=== PATIENT | female | born 1955 | race Caucasian/White ===

== ENCOUNTER 2022-12-23 15:54 | Emergency (ER) | payer MEDICARE, SELFPAY ==
--- NOTE | 2022-12-23 15:56 | ED.EYEPROB ---
HPI - Eye Problem General Chief complaint: Eye Problems Stated complaint: Lt Eye Irritation Time Seen by Provider: 12/23/22 15:56 Source: patient Mode of arrival: ambulatory Limitations: no limitations History of Present Illness HPI Narrative: Ivy is a 67-year-old female patient presenting to the clinic today with complaints of left eye irritation since last night. She reports she had a gritty sensation in her eye last night and woke up this morning with her eyes matted shut with yellow purulent drainage. Is also having some watery eyes/photosensitivity. States she has recently been exposed her grandkids however none of them have conjunctivitis. She denies any injury or foreign body in the eye. Recently had cataract surgery to the left eye 8 weeks ago. Denies any change in vision. Related Data Home Medications Medication Instructions Recorded Confirmed atorvastatin 20 mg tablet 20 mg PO DAILY 12/23/22 12/23/22 fluoxetine 40 mg capsule 40 mg PO DAILY 12/23/22 12/23/22 fluticasone propionate 115 2 puff inhalation BID 12/23/22 12/23/22 mcg-salmeterol 21 mcg/actuation HFA inhaler (Advair HFA) insulin glargine 100 unit/mL (3 See Rx Instructions .Route .COMPLEX 12/23/22 12/23/22 mL) subcutaneous pen (Lantus Solostar U-100 Insulin) insulin lispro 100 unit/mL See Rx Instructions .Route .COMPLEX 12/23/22 12/23/22 subcutaneous pen (Humalog KwikPen (U-100) Insulin) losartan 25 mg tablet 25 mg PO DAILY 12/23/22 12/23/22 metformin 1,000 mg tablet 1,000 mg PO DAILY 12/23/22 12/23/22 montelukast 10 mg tablet 10 mg PO HS 12/23/22 12/23/22 pantoprazole 40 mg tablet,delayed 40 mg PO DAILY 12/23/22 12/23/22 release trazodone 50 mg tablet 50 mg PO HS 12/23/22 12/23/22 Allergies Allergy/AdvReac Type Severity Reaction Status Date / Time No Known Allergies Allergy Verified 12/23/22 16:04 Review of Systems Review of Systems: Pertinent positives per HPI. Patient denies any fever, chills, rash, headache, visual changes, dizziness, cough, runny nose, sore throat, shortness of breath, chest pain, palpitations, nausea, vomiting, diarrhea, constipation, abdominal pain, or any urinary issues. PMFSH Comments At the time of my signature, I reviewed and agree with the nursing past medical, surgical, social, and family history. There is no relevant family history pertinent to the patient complaint. Exam Narrative: General: Well-developed, well nourished, in no apparent distress Head: Normocephalic, atraumatic Eyes: Pupils equally round and reactive to light bilaterally, EOM intact, right sclera and conjunctive clear, no discharge, right lids normal, left sclera and conjunctiva injected with yellow mucopurulent discharge, left lids mildly swelling Ears: TMs intact and clear, ear canals clear, no drainage, grossly hearing normal. Nose: Nares patent, no discharge, no inflammation, no sinus tenderness. Mouth: Oropharynx without lesions or masses, good dentition, MMM. Neck: Supple, trachea midline, no enlargement of anterior or posterior cervical nodes, no thyroid masses or goiter palpable. Cardio: Regular rate and rhythm, s1 and s2 normal, no murmur appreciated. Resp: Clear to auscultation bilaterally anteriorly and posteriorly, no rhonchi, rales, wheezing or rubs Course Course Emergency Course: Portions of this record may have been created with voice recognition software. Level of Care: Express Care Visit Vital Signs Vital signs: Vital signs reviewed Procedures Other Procedure Procedure 1: Other Procedure: Risk and benefits discussed with the patient regarding a Wood's lamp exam and patient gives verbal consent. Topical anesthetic (tetracaine) was instilled with good anesthesia using 2gtt. Fluorescein stain of the left eye was performed without uptake of dye. No epithelial defect was noted. NO FB, ulcer or dendritic lesions. Yellow mucopurulent discharge noted to the conjunctiva, upper lid was
[2022-12-23 16:06] VITALS: BP 146/71; PULSE 93; RESP 16; TEMP 36.4; O2SAT 96
== END 2022-12-23 16:22 | disposition home or self-care (01) ==
PROVIDERS: Emergency Provider Nurse Practitioner Family; PCP Family Medicine
DX: H10.9 Unspecified conjunctivitis (principal); E78.00 Pure hypercholesterolemia, unspecified; I10 Essential (primary) hypertension; K21.9 Gastro-esophageal reflux disease without esophagitis; M19.90 Unspecified osteoarthritis, unspecified site; E11.9 Type 2 diabetes mellitus without complications; F41.9 Anxiety disorder, unspecified; F32.A Depression, unspecified
CPT/HCPCS: 90471; 99203; A9270; G0463

== ENCOUNTER 2024-11-08 13:26 | Emergency (ER) | payer MEDICARE, SELFPAY ==
--- OUTSIDE RECORDS SUMMARY | 2024-11-08 13:29 | XMS_ITS | Patient Health Record ---
Author Organization [facility]ly [facility] Address [address] [place] [address] Care Team Providers Care Boat Captain Name Role Phone Dr. Shell Munoz Primary Care Provider [phone] Elena Peters Unavailable [phone] Dr. Narciso Villareal Unavailable [phone] Migration, Provider Unavailable Unavailable Allergies Allergen (clinical drug ingredient) Drug/Non Drug Allergy documented on EMR Reaction Allergy Type Onset Date Status pioglitazone Pioglitazone swelling leg Drug Allergy 12/17/19 21 Active Results Component Value Reference Range Flag Notes CBC w/ Diff Reviewed date:01/08/2024 12:00:00 AM Interpretation: Performing Lab: Notes/Report: Basophil Auto 0.6 % Eos Absolute 0.2 x10*3/mcL Eosinophil Auto 2.7 % Hct 37.0 % Hgb 12.4 g/dL Lymph Absolute 2.3 x10*3/mcL Lymph Auto 36.4 % MCH 30.9 pg MCHC 33.4 g/dL MCV 92.5 fL [place] Absolute 0.5 x10*3/mcL [place] Auto 7.8 % MPV 9.1 fL Neutro Absolute 3.3 x10*3/mcL Neutro Auto 52.5 % Platelets 285 K/mcL RBC 4.00 x10*6/mcL RDW 14.0 % WBC 6.3 K/mcL Comprehensive Metabolic Pane l Reviewed date:01/08/2024 12:00:00 AM Interpretation: Performing Lab: Notes/Report: Albumin Lvl 3.9 g/dL Albumin/Globulin Ratio 1.4 Alk Phos 61 unit/L ALT 60 unit/L ANION GAP 8.0 mmol/L AST 48 unit/L Bilirubin Total 0.5 mg/dL BUN 11 mg/dL Calcium Lvl 9.2 mg/dL Chloride Lvl 105 mmol/L CO2 26 mmol/L Creatinine Lvl 0.64 mg/dL eGFR CKD-EPI >90 mL/min/1.73 m2 Glucose Lvl 128 mg/dL Potassium Lvl 5.0 mmol/L Protein Total 6.7 g/dL Sodium Lvl 139 mmol/L Hemoglobin A1c {Glycosylated } Reviewed date:01/08/2024 12:00:00 AM Interpretation: Performing Lab: Notes/Report: eAvg Glucose 177 mg/dL Hemoglobin A1c 7.8 % Lipid Panel {Chol, Trig, HDL , LDL} Reviewed date:01/08/2024 12:00:00 AM Interpretation: Performing Lab: Notes/Report: Chol/HDL 3 Cholesterol Total 143 mg/dL Coronary Risk 37 % HDL 54 mg/dL LDL 74 mg/dL NON HDL CHOLESTEROL 90 mg/dL Triglycerides 77 mg/dL T4 Free Reviewed date:01/08/2024 12:00:00 AM Interpretation: Performing Lab: Notes/Report: T4 Free 0.86 ng/dL Thyroid Stimulating Hormone Reviewed date:01/08/2024 12:00:00 AM Interpretation: Performing Lab: Notes/Report: TSH 1.61 mcIU/mL Vitamin B12 Reviewed date:01/08/2024 12:00:00 AM Interpretation: Performing Lab: Notes/Report: Vitamin B12 Lvl 544 pg/mL Vitamin D 25 Hydroxy Reviewed date:01/08/2024 12:00:00 AM Interpretation: Performing Lab: Notes/Report: Vitamin D 25 OH 36 ng/mL AUDIT-C Reviewed date:03/22/2024 12:00:00 AM Interpretation: Performing Lab: Notes/Report: How many standard drinks containing alcohol do you have on a typical day? N/A How often do you have 6 or more drinks on 1 occasion Never How often do you have a drink containing alcohol Never Total Score 0 Patient Health Questionnaire (PHQ9) Reviewed date:03/22/2024 12:00:00 AM Interpretation: Performing Lab: Notes/Report: Feeling bad about yourself or that you are a failure or have let yourself or your family down 0 Feeling down, depressed, or hopeless 0 Feeling tired or having little energy 1 If you checked off any problems, how difficult Not difficult at all have these problems made it for you to do your work, take care of things at home, or get along with other people? 0 Little interest or pleasure in doing things 0 Moving or speaking so slowly that other people could have noticed or the opposite being so figety or restless that you have been moving around a lot more than usual 0 Poor appetite or overeating 1 Thoughts that you would be better off , or of hurting yourself 0 Trouble concentrating on things, such as reading the newspaper or watching television 0 Trouble falling or staying asleep, or sleeping too much 1 Comprehensive Metabolic Pane l Reviewed date:08/13/2024 05:50:52 PM Interpretation: Performing Lab: Notes/Report: Test Performed by: [place] [address] Professional Nurse: Kiko Whittington DO Glucose Lvl 112 74-109 mg/dL H ADA risk stratification for diabetes <100 mg/dL = Normal 100-125 mg/dL = Increased risk for future diabetes >=126 mg/dL = Diabetes, if on more than one testing occasion BUN 20 7-25 mg/dL Creatinine Lvl 0.80 0.60-1.20 mg/dL eGFR CKD-EPI 80 >=90 mL/min/1.73 m2 L The CKD-EPI equation is validated in individuals 18 years of age and older. It is less accurate in patients with extremes of muscle mass, restriction of dietary protein, ingestion of creatine, extra-renal metabolism of creatinine, or treatment with medications that affect renal tubular creatinine secretion. GFR Categories in Chronic Kidney Disease (CKD) GFR GFR (mL/min/1.73 Category: square meters): Interpretation: G1 90 or greater Normal or high* G2 60-89 Mild decrease* G3a 45-59 Mild to moderate decrease G3b 30-44 Moderate to severe decrease G4 15-29 Severe decrease G5 14 or less Kidney failure *In the absence of evidence of kidney damage, neither GFR category G1 nor G2 fulfill the criteria for CKD (Kidney Int Suppl 2013;3:1-150) Calcium Lvl 9.7 8.6-10.3 mg/dL Sodium Lvl 138 136-145 mmol/L Potassium Lvl 4.5 3.5-5.1 mmol/L Chloride Lvl 102 98-107 mmol/L CO2 29 21-31 mmol/L Anion Gap 6.8 <=16.0 mmol/L Alk Phos 56 34-104 unit/L Bilirubin Total 0.5 0.3-1.0 mg/dL Albumin Lvl 4.3 3.5-5.2 g/dL Protein Total 7.3 6.4-8.9 g/dL Albumin/Globulin Ratio 1.5 1.1-2.5 ALT 48 7-52 unit/L AST 43 13-39 unit/L H Lipid Panel {Chol, Trig, HDL , LDL} Reviewed date:08/13/2024 05:50:52 PM Interpretation: Performing Lab: Notes/Report: Test Performed by: [place] [id number] Professional Nurse: Kiko Whittington DO Cholesterol Total 165 <=199 mg/dL Triglycerides 106 0-149 mg/dL Triglyceride Reference Ranges: <150 mg/dL Normal 150 - 199 mg/dL Borderline High 200 - 499 mg/dL High >=500 mg/dL Very High LDL 85 <=100 mg/dL LDL Optimal: <100 Near or above optimal: 100-129 Borderline high: 130-159 High: 160-189 Very high: >=190 Coronary heart disease risk factors should be considered when determining LDL goals. Please refer to ATPIII guidelines for further information. If LDL is not calculated, please call the lab to add on the direct LDL methodology, if desired. HDL 59 23-92 mg/dL Non HDL Cholesterol 106 <=130 mg/dL Chol/HDL 3 0-5 Coronary Risk 36 Coronary Risk Factor - Male Dangerous Risk: <7 % High Risk: 7-15 % Average Risk: 15-25 % Below Average Risk: 25-37 % Coronary Risk Factor - Female Dangerous Risk: <12 % High Risk: 12-18 % Average Risk: 18-27 % Below Average Risk: 27-40 % Thyroid Stimulating Hormone Reviewed date:08/13/2024 05:50:52 PM Interpretation: Performing Lab: Notes/Report: Test Performed by: [place] [id number] Professional Nurse: Kiko Whittington DO TSH 1.92 0.45-5.33 mcIU/mL Chest X-ray PA and lateral Reviewed date:06/11/2024 04:50:25 PM Interpretation: Performing Lab: Notes/Report: Covid DNA Alere Reviewed date:06/10/2024 10:39:26 AM Interpretation:Positive Performing Lab: Notes/Report: Positive CBC w Auto Diff Reviewed date:08/13/2024 05:50:52 PM Interpretation: Performing Lab: Notes/Report: Test Performed by: [place] [id number] Professional Nurse: Kiko Whittington DO WBC 6.8 4.0-11.7 K/mcL RBC 4.19 3.80-5.41 x10*6/mcL Hgb 12.8 11.3-15.2 g/dL Hct 38.1 33.2-45.3 % MCV 90.8 79.5-98.1 fL MCH 30.4 27.0-34.2 pg MCHC 33.5 31.8-35.3 g/dL RDW 14.1 12.0-16.4 % Platelets 310 149-393 K/mcL MPV 8.7 7.0-11.0 fL Neutro Auto 52.3 45.3-79.0 % Lymph Auto 37.7 11.8-45.9 % [place] Auto 6.5 4.4-12.0 % Eosinophil Auto 2.9 0.0-6.3 % Basophil Auto 0.6 0.2-1.6 % Neutro Absolute 3.5 2.4-8.4 x10*3/mcL Lymph Absolute 2.6 0.8-3.7 x10*3/mcL [place] Absolute 0.4 0.3-1.1 x10*3/mcL Eos Absolute 0.2 0.0-0.5 x10*3/mcL Hemoglobin A1c {Glycosylated } Reviewed date:08/13/2024 09:14:34 PM Interpretation: Performing Lab: Notes/Report: Test Performed by: [address] [id number] Professional Nurse: Kiko Whittington DO Hemoglobin A1c 7.4 <=6.4 % H Hemoglobin A1C < 5.7% = Normal 5.7-6.4% = Increased risk for future diabetes >=6.5% = Diabetes eAvg Glucose 166 <=117 mg/dL H eAG Reference Range <117 mg/dL = Normal 117-137 mg/dL = Increased Risk For Future Diabetes >137 mg/dL = Diabetes T4 Free Reviewed date:08/13/2024 05:50:52 PM Interpretation: Performing Lab: Notes/Report: Test Performed by: [address] [id number] Professional Nurse: Kiko Whittington DO T4 Free 0.78 0.60-1.70 ng/dL Magnesium Reviewed date:08/13/2024 05:50:52 PM Interpretation: Performing Lab: Notes/Report: Test Performed by: [address] [id number] Professional Nurse: Kiko Whittington DO Magnesium Lvl 2.0 1.6-2.4 mg/dL Reason For Referral No Information Medications Medication SIG (Take, Route, Frequency, Duration) Notes Start Date End Date Status NovoLOG FlexPen 100 UNIT/ML Solution Pen-injector 15 units Subcutaneous 3 times a day; Duration: 90 days Take an additional 2 units of sliding scale for every 20 mg/dl of blood sugar above 120 for a max of 80 units total per day of novolog. See new directions. 5 Active Advair HFA 115-21 MCG/ACT Aerosol 2 Inhalation two times a day; Duration: 0 days As needed 3 Active hydroCHLOROthiazide 25 MG Tablet 0.5 tablet Orally Once a day; Duration: 90 days Active cyanocobalamin (vitamin B-12) 500 mcg Tablet(s) Oral; Duration: 0 *Reorder from [employer]agen for eRx and Interaction Alerts* 1 Active Dexcom G6 Transmitter - Miscellaneous as directed; Duration: 90 days change every 90 days 5 Active Atorvastatin Calcium 20 MG Tablet 1 tablet Orally Once a day; Duration: 90 days Active Loratadine 10 MG Tablet 1 Oral every day ; Duration: 0 2 Not-Taking Dexcom G6 Sensor Miscellaneous Use as directed; change every 10 days; Duration: 90 days E11.65 4 Active Olmesartan Medoxomil 40 MG Tablet TAKE 1 TABLET BY MOUTH DAILY; Duration: 90 Active Vitamin D3 50 MCG (1999 UT) Tablet 1 Oral every day; Duration: 0 1 Active Aspirin Adult Low Strength 81 MG Tablet Delayed Release 1 Oral every day; Duration: 0 2 Active Lansoprazole 30 MG Capsule Delayed Release 1 capsule 1/2 to 1 hour before morning meal Orally Once a day Active Dexcom G6 Sensor - Miscellaneous as directed; Duration: 30 days change every 10 days start PA if needed. Active Lantus SoloStar 100 UNIT/ML Solution Pen-injector 48 units Subcutaneous daily; Duration: 90 days Active Famotidine 40 MG Tablet Oral; Duration: 90 Days Active FLUoxetine HCl 20 MG Capsule 1 capsule Orally Once a day; Duration: 90 days take along with 40 mg Active Estradiol 0.1 MG/GM Cream as directed Vaginal 10mcg twice per week. Active metFORMIN HCl 1000 MG Tablet 1 tablet with a meal Orally twice a day; Duration: 90 days Active traZODone HCl 50 MG Tablet 1/2 tablet Orally Once a day; Duration: 90 days Unknown Montelukast Sodium 10 MG Tablet Oral; Duration: 90 Days Active FLUoxetine HCl 40 MG Capsule 1 capsule Orally Once a day; Duration: 90 days take along with 20 mg capsule Active Immunizations Vaccine Route Administration Date Status Comme nts Zoster IM Intramuscular 10/14/2020 Administered Source VFC Code: : Zoster IM Intramuscular 01/17/2021 Administered Source VFC Code: : Tdap IM Intramuscular 01/10/2024 Administered ,sourc ename : New immunization record ,immstatus : Complete Td (adult), adsorbed Unknown 07/10/2012 Administered ,sourcename : Historical information -from certificate Source VFC Code: : RSV-MAb (Respiratory syncytial virus immune globulin) IM Intramuscular 03/12/2024 Administered ,sourcename : New immunization record ,immstatus : Complete Pneumococcal polysaccharide PPV23 IM Intramuscular 03/05/2019 Administered Source VFC Code: : Pneumococcal conjugate PCV 13 IM Intramuscular 12/21/2021 Administered ,sourcename : New immunization record ,immstatus : Complete Pfizer-Biontech Covid-19 Vaccine 1st dose Unknown 07/27/2020 Administered ,sourcename : Historical information -source unspecified Source VFC Code: : Pfizer-Biontech Covid-19 Vaccine 1st dose Unknown 08/19/2020 Administered ,sourcename : Historical information -source unspecified Source VFC Code: : Pfizer-Biontech Covid-19 Vaccine 1st dose IM Intramuscular 04/12/2021 Administered Source VFC Code: : Pfizer-Biontech Covid-19 Vaccine 1st dose Unknown 04/04/2022 Administered ,sourcename : Pharmacy Source VFC Code: : Influenza, MDCK, quadrivalent, PF IM Intramuscular 03/21/2021 Administered Source VFC Code: : Influenza, high-dose seasonal, quadrivalent, preservative free >65 yrs IM Intramuscular 02/23/2022 Administered ,sourcename : New immunization record ,immstatus : Complete Source VFC Code: : Influenza, high-dose seasonal, quadrivalent, preservative free >65 yrs IM Intramuscular 03/13/2023 Administered ,sourcename : N ew immunization record ,immstatus : Complete Social History Social History Additional Details Category Social Info Options Details Migrated Social History Migrated Social History Marital status: , Employment:Currently employed ,notes : nurse , Alcohol history:Never drinks alcohol , Tobacco history:Never smoker Problems Problem Type SNOMED Code ICD Code Onset Dates Problem Status W/U Status Risk Notes Problem Anxiety disorder (914124993) Anxiety disorder, unspecified (F41.9) 03/13/20 23 Active confirmed Problem Acute cough (1063308773551396 04) Acute cough (R05.1) 10/11/19 22 Problem resolved confirmed Problem COVID-19 (907155946) COVID-19 (U07.1) 10/11/19 22 Problem resolved confirmed Problem Muscle pain (91075037) Myalgia, unspecified site (M79.10) 12/07/19 23 Problem resolved confirmed Problem Laboratory test result abnormal (556556219) Abnormal levels of other serum enzymes (R74.8) 06/13/19 24 Problem resolved confirmed Problem Chest pain (20440849) Other chest pain (R07.89) 08/26/19 23 Problem resolved confirmed Problem Cough (29919721) Cough (R05) 04/19/20 21 Problem resolved confirmed Problem Tachycardia (3473935) Tachycardia, unspecified (R00.0) 05/23/20 21 Problem resolved confirmed Problem Acute pharyngitis (095304099) Acute pharyngitis, unspecified (J02.9) 08/26/19 23 Problem resolved confirmed Problem Conjunctivitis (6159395) Unspecified conjunctivitis (H10.9) 01/04/20 23 Problem resolved confirmed Problem Postmenopausal state (08556929) Asymptomatic menopausal state (Z78.0) 06/27/19 22 Active confirmed Problem Screening for malignant neoplasm of colon (912616450) Encounter for screening for malignant neoplasm of colon (Z12.11) 03/12/20 24 Active confirmed Problem Dysphonia (68136953) Dysphonia (R49.0) 07/20/19 24 Active confirmed Problem Heart murmur (finding) (06468118) Cardiac murmur, unspecified (R01.1) 02/16/20 24 Active confirmed Problem Enthesopathy of hip region (91004057) Other bursitis of hip, right hip (M70.71) 12/07/19 23 Active confirmed Problem Fatty liver (371408565) Fatty (change of) liver, not elsewhere classified (K76.0) 01/10/20 24 Active confirmed Problem Gastro-esophageal reflux disease without esophagitis (538881423) Gastro-esophageal reflux disease without esophagitis (K21.9) 01/11/20 24 Active confirmed Problem Uncomplicated mild persistent asthma (723871455) Mild persistent asthma, uncomplicated (J45.30) 04/03/20 22 Active confirmed Problem Essential hypertension (27441075) Essential (primary) hypertension (I10) 01/09/20 24 Active confirmed Problem Polyneuropathy (28922070) Polyneuropathy, unspecified (G62.9) 03/13/20 23 Active confirmed Problem Obstructive sleep apnea syndrome (disorder) (07160564) Obstructive sleep apnea (adult) (pediatric) (G47.33) 03/22/20 24 Active confirmed Problem Adjustment disorder with depressed mood (73784404) Adjustment disorder with depressed mood (F43.21) 12/22/19 22 Active confirmed Problem Recurrent major depression in remission (73411997) Major depressive disorder, recurrent, in partial remission (F33.41) 06/21/19 23 Active confirmed Problem Hyperkalemia (40919963) Hyperkalemia (E87.5) 06/13/19 24 Active confirmed Problem Hyperlipidemia (18548489) Hyperlipidemia, unspecified (E78.5) 04/18/20 24 Active confirmed Problem Vitamin D deficiency (98465460) Vitamin D deficiency, unspecified (E55.9) 06/16/19 23 Active confirmed Problem Vitamin B deficiency (81173657) Deficiency of other specified B group vitamins (E53.8) 06/04/19 24 Active confirmed Problem Diabetic peripheral neuropathy associated with type 2 diabetes mellitus (2428871722215) Type 2 diabetes mellitus with diabetic neuropathy, unspecified (E11.40) 06/21/19 Active confirmed Problem 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) Benign lipomat ous neoplasm, 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) 07/20/19 Active confirmed Problem Hyperglycemia due to type 2 diabetes mellitus (122411221011677) Type 2 diabetes mellitus with hyperglycemia (E11.65) Active confirmed Problem Diverticula of intestine (94559527) Diverticulosis of intestine, part unspecified, without perforation or abscess without bleeding (K57.90) 05/23/20 Problem resolved confirmed Problem Body mass index 30.00 to 34.99 (096142497288320) Body mass index (BMI) 33.0-33.9, adult (Z68.33) 03/12/20 Active confirmed Problem Blood chemistry abnormal (415369256) Other specified abnormal findings of blood chemistry (R79.89) 07/06/19 Active confirmed Vital Signs Heart Rate 92 /min 08/18/2024 Temperature 97.6 degrees Fahrenheit 08/18/2024 Respiratory Rate 18 /min 08/18/2024 Height-cm 165.1 cm 08/18/2024 Blood pressure diastolic 74 mm Hg 08/18/2024 Oximetry 98 % 08/18/2024 Weight-kg 93.62 kg 08/18/2024 Height 65.00 in 08/18/2024 Blood pressure systolic 130 mm Hg 08/18/2024 Weight 206.4 lbs 08/18/2024 BMI 34.34 kg/m2 08/18/2024 Procedures Procedure Date Ordered Date Performed Result Body Sit e ECG RECORDING 06/05/2024 06/05/2024 N/A ESOPHAGOGASTRODUODENOSCOPY 06/21/2024 07/29/2024 Normal Colonoscopy 06/21/2024 07/30/2024 Negative Encounters Encounter Location Date Provider Diagnosis [address] [address] 01/03/2024 Provider Migration Type 2 diabetes mellitus with diabetic neuropathy, unspecified E11.40 ; Vitamin D deficiency, unspecified E55.9 ; Essential (primary) hypertension I10 ; Deficiency of other specified B group vitamins E53.8 and Hyperlipidemia, unspecified E78.[address] [address] 01/10/2024 Dr. Shell Munoz Major depressive disorder, recurrent, in partial remission F33.41 ; Chest pain, unspecified R07.9 ; Fatty (change of) liver, not elsewhere classified K76.0 ; Dysphonia R49.0 ; Essential (primary) hypertension I10 ; Mild intermittent asthma, uncomplicated J45.20 ; Other specified abnormal findings of blood chemistry R79.89 ; Cough, unspecified R05.9 ; Type 2 diabetes mellitus with hyperglycemia E11.65 ; Abnormal levels of other serum enzymes R74.8 ; Encounter for immunization Z23 and Gastro-esophageal reflux disease without esophagitis K21.[address] [address] 02/04/2024 Provider Migration Dysphonia R49.0 and Foreign body sensation, throat R09.A2 [address] [address] 02/16/2024 Dr. Narciso Villareal Mild persistent asthma, uncomplicated J45.30 ; Cough, unspecified R05.9 ; Cardiac murmur, unspecified R01.1 ; Encounter for screening for COVID-19 Z11.52 ; Acute upper respiratory infection, unspecified J06.9 and Chronic sinusitis, unspecified J32.[address] [address] 03/12/2024 Dr. Shell Munoz Encounter for general adult medical examination without abnormal findings Z00.00 ; Cardiac murmur, unspecified R01.1 ; Dysphonia R49.0 ; Mild persistent asthma, uncomplicated J45.30 ; Encounter for screening for malignant neoplasm of colon Z12.11 ; Obstructive sleep apnea (adult) (pediatric) G47.33 ; Body mass index (BMI) 33.0-33.9, adult Z68.33 ; Type 2 diabetes mellitus with diabetic neuropathy, unspecified E11.40 ; Allergic rhinitis, unspecified J30.9 ; Major depressive disorder, single episode, in full remission F32.5 and Encounter for immunization Z23 [address] [address] 04/21/2024 Dr. Shell Munoz Hyperlipidemia, unspecified E78.5 ; Type 2 diabetes mellitus with hyperglycemia E11.65 ; Type 2 diabetes mellitus with diabetic neuropathy, unspecified E11.40 ; Fatty (change of) liver, not elsewhere classified K76.0 ; Dysphonia R49.0 and Major depressive disorder, single episode, in full remission F32.[address] [address] 05/09/2024 Elena Peters COVID-19 U07.1 and Acute cough R05.[address] [address] 05/16/2024 Elena Peters Acute cough R05.1 ; COVID-19 U07.1 and Type 2 diabetes mellitus with hyperglycemia E11.[address] [address] 06/05/2024 Elena Peters Pre-op exam Z01.818 ; 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 Shell Munoz Type 2 diabetes mellitus with diabetic neuropathy, unspecified E11.40 ; Hyperlipidemia, unspecified E78.5 ; Chronic GERD K21.9 ; Status post excision of vocal cord nodule Z98.890 and Essential (primary) hypertension I10 [address] [address] 08/18/2024 Dr. Shell Munoz Type 2 diabetes mellitus with diabetic neuropathy, unspecified E11.40 ; Hyperlipidemia, unspecified E78.5 ; Essential (primary) hypertension I10 ; Major depressive disorder, recurrent, in partial remission F33.41 ; Fatty (change of) liver, not elsewhere classified K76.0 and Gastro-esophageal reflux disease without esophagitis K21.[address] [address] 04/26/2024 Provider Migration [address] [address] 04/27/2024 Provider Migration [address] [address] 05/09/2024 Elena Peters [address] [address] 05/15/2024 Dr. Shell Munoz [address] [address] 06/05/2024 Dr. Shell Munoz Acute cough R05.[address] [address] 06/05/2024 Dr. Shell Munoz [address] [address] 06/24/2024 Dr. Shell Munoz [address] [address] 06/24/2024 Dr. Shell Munoz [address] [address] 07/03/2024 Dr. Shell Munoz Type 2 diabetes mellitus with hyperglycemia E11.[address] [address] 07/04/2024 Dr. Shell Munoz Type 2 diabetes mellitus with hyperglycemia E11.[address] [address] 07/09/2024 Dr. Shell Munoz Type 2 diabetes mellitus with hyperglycemia E11.[address] [address] 07/23/2024 Dr. Shell Munoz Essential (primary) hypertension I10 [address] [address] 08/13/2024 Dr. Shell Munoz Type 2 diabetes mellitus with diabetic neuropathy, unspecified E11.[address] [address] 08/21/2024 Dr. Shell Munoz Type 2 diabetes mellitus with hyperglycemia E11.[address] [address] 10/16/2024 Dr. Shell Munoz Type 2 diabetes mellitus with diabetic neuropathy, unspecified E11.40 Assessments Encounter Date Diagnosis (ICD Code) Assessment Notes Treatment Notes Treatment Clinical Notes Section Notes 08/18/2024 Type 2 diabetes mellitus with diabetic neuropathy, unspecified (ICD-10 - E11.40) f/u 6 months, reduce sugars, adjust insulin doses. Get back to using meter once WM is able to get it in. 07/03/2024 Type 2 diabetes mellitus with hyperglycemia (ICD-10 - E11.65) 06/20/2024 Type 2 diabetes mellitus with diabetic neuropathy, unspecified (ICD-10 - E11.40) ALL LABS TO BE DONE IN NEARLY 3 MONTHS 06/20/2024 Hyperlipidemia, unspecified (ICD-10 - E78.5) 08/18/2024 Hyperlipidemia, unspecified (ICD-10 - E78.5) continue statin 07/23/2024 Essential (primary) hypertension (ICD-10 - I10) 06/05/2024 Pre-op exam (ICD-10 - Z01.818) Will check CBC and CMP, results are pending. EKG showed sinus tach, no ST changes, Cxray was negative. 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 06/05/2024 Acute cough (ICD-10 - R05.1) 07/09/2024 Type 2 diabetes mellitus with hyperglycemia (ICD-10 - E11.65) 05/16/2024 COVID-19 (ICD-10 - U07.1) Dx'd with Covid last week. She is prone to PNE. She was prescribed w/ Paxlovid and 7 days of levaquin. She has also been using albuterol. She doesn't take Advair due to elevated sugar levels. It took about 4 days for her to start to improve. She is mildly improved. Oxygen is much better. Lungs are clear, but cough is harsh sounding. She had CT of chest the day before she was in clinic last week and it didn't reveal a PNE or any other concerns. Today will extend levaquin for 3 more day, do prednisone taper. 05/16/2024 Acute cough (ICD-10 - R05.1) 05/09/2024 COVID-19 (ICD-10 - U07.1) Based on story, she was sick last week and getting better. Then 2 days ago started to feel worst. She tested positive for Covid today. Disussed the usual disease process of Covid and signs and symptoms to monitor. Will treat with Paxlovid. Recommend pushing fluids and taking Mucinex. Discussed the current quarantine guidelines Later in day was able to get CT results. No active PNE, but patient is concerned frequent history of PNE. With her having an illness last week and now active Covid will cover patient with Levaquin 500mg PO Daily for 7 days. See phone note 05/09/2024 Acute cough (ICD-10 - R05.1) 03/12/2024 Type 2 diabetes mellitus with diabetic neuropathy, unspecified (ICD-10 - E11.40) 03/12/2024 Major depressive disorder, single episode, in full remission (ICD-10 - F32.5) 03/12/2024 Obstructive sleep apnea (adult) (pediatric) (ICD-10 - G47.33) 03/12/2024 Allergic rhinitis, unspecified (ICD-10 - J30.9) 03/12/2024 Mild persistent asthma, uncomplicated (ICD-10 - J45.30) 03/12/2024 Cardiac murmur, unspecified (ICD-10 - R01.1) 03/12/2024 Dysphonia (ICD-10 - R49.0) 03/12/2024 Encounter for general adult medical examination without abnormal findings (ICD-10 - Z00.00) 03/12/2024 Encounter for screening for malignant neoplasm of colon (ICD-10 - Z12.11) 03/12/2024 Encounter for immunization (ICD-10 - Z23) 03/12/2024 Body mass index (BMI) 33.0-33.9, adult (ICD-10 - Z68.33) 02/16/2024 Acute upper respiratory infection, unspecified (ICD-10 - J06.9) 02/16/2024 Chronic sinusitis, unspecified (ICD-10 - J32.9) 02/16/2024 Mild persistent asthma, uncomplicated (ICD-10 - J45.30) 02/16/2024 Cardiac murmur, unspecified (ICD-10 - R01.1) 02/16/2024 Encounter for screening for COVID-19 (ICD-10 - Z11.52) 02/16/2024 Cough, unspecified (ICD-10 - R05.9) 01/10/2024 Type 2 diabetes mellitus with hyperglycemia (ICD-10 - E11.65) 01/10/2024 Major depressive disorder, recurrent, in partial remission (ICD-10 - F33.41) 01/10/2024 Essential (primary) hypertension (ICD-10 - I10) 01/10/2024 Mild intermittent asthma, uncomplicated (ICD-10 - J45.20) 01/10/2024 Gastro-esophageal reflux disease without esophagitis (ICD-10 - K21.9) 01/10/2024 Fatty (change of) liver, not elsewhere classified (ICD-10 - K76.0) 01/10/2024 Chest pain, unspecified (ICD-10 - R07.9) 01/10/2024 Dysphonia (ICD-10 - R49.0) 01/10/2024 Abnormal levels of other serum enzymes (ICD-10 - R74.8) 01/10/2024 Other specified abnormal findings of blood chemistry (ICD-10 - R79.89) 01/10/2024 Encounter for immunization (ICD-10 - Z23) 01/10/2024 Cough, unspecified (ICD-10 - R05.9) 01/03/2024 Type 2 diabetes mellitus with diabetic neuropathy, unspecified (ICD-10 - E11.40) 01/03/2024 Deficiency of other specified B group vitamins (ICD-10 - E53.8) 01/03/2024 Vitamin D deficiency, unspecified (ICD-10 - E55.9) 01/03/2024 Hyperlipidemia, unspecified (ICD-10 - E78.5) 01/03/2024 Essential (primary) hypertension (ICD-10 - I10) 08/21/2024 Type 2 diabetes mellitus with hyperglycemia (ICD-10 - E11.65) 08/13/2024 Type 2 diabetes mellitus with diabetic neuropathy, unspecified (ICD-10 - E11.40) 04/21/2024 Type 2 diabetes mellitus with diabetic neuropathy, unspecified (ICD-10 - E11.40) 04/21/2024 Type 2 diabetes mellitus with hyperglycemia (ICD-10 - E11.65) 04/21/2024 Hyperlipidemia, unspecified (ICD-10 - E78.5) 04/21/2024 Major depressive disorder, single episode, in full remission (ICD-10 - F32.5) 04/21/2024 Fatty (change of) liver, not elsewhere classified (ICD-10 - K76.0) 04/21/2024 Dysphonia (ICD-10 - R49.0) 02/04/2024 Dysphonia (ICD-10 - R49.0) 02/04/2024 Foreign body sensation, throat (ICD-10 - R09.A2) 10/16/2024 Type 2 diabetes mellitus with diabetic neuropathy, unspecified (ICD-10 - E11.40) 07/04/2024 Type 2 diabetes mellitus with hyperglycemia (ICD-10 - E11.65) 05/16/2024 Type 2 diabetes mellitus with hyperglycemia (ICD-10 - E11.65) Blood sugars are running very high, she has been taking Lantus 48 units daily and humalog sliding scale. She has been taking upwards to 100 units of Humalog since being sick. Discussed steroids really elevating blood sugars. She is aware and will refill humalog 06/20/2024 Chronic GERD (ICD-10 - K21.9) stay on PPI 08/18/2024 Essential (primary) hypertension (ICD-10 - I10) 06/05/2024 Tachycardia (ICD-10 - R00.0) Since having Covid, she has been tachycardic. EKG shows Sinus tach. She has not seen a optical effects camera operator, but she many beneit from a referral at some point. Checking CBC, CMP, and magnesium today 08/18/2024 Major depressive disorder, recurrent, in partial remission (ICD-10 - F33.41) 06/20/2024 Status post excision of vocal cord nodule (ICD-10 - Z98.890) 06/05/2024 Acute cough (ICD-10 - R05.1) Been coughing for about 4 weeks, since having Covid. She will occasionally still cough up yellow phlegm in the morning. Cxray today is negative. Will not do any other treatment at this time. 08/18/2024 Fatty (change of) liver, not elsewhere classified (ICD-10 - K76.0) LFts are improved. 06/20/2024 Essential (primary) hypertension (ICD-10 - I10) - Recent hypertension reading, unusual for the patient. - Recheck blood pressure. Monitor for any further symptoms. Suggest increase in losartan to 25mg BID if still running more than 130/80 at home this weekend. Pt to call next week with update. - Advise patient on lifestyle modifications to help manage blood pressure, including diet, exercise, and stress reduction. 08/18/2024 Gastro-esophageal reflux disease without esophagitis (ICD-10 - K21.9) 06/20/2024 Other Recent vocal cord surgery and Healing - Post-surgical healing is slower than expected, with some swelling and edema. No cancer was found. - Continue with regular to light use of voice, avoid singing and excessive talking. Follow-up with Dr. Juárez in four weeks. Monitor healing progress. - Patient to stay hydrated and monitor for any signs of infection or worsening symptoms. Diabetes Management - Current A1C is 6.7 as of March. Insulin prescription needs adjustment due to insurance coverage changes. - Switch from humalog to novolog FlexPen due to ins coverage (pt received letter), 15 units subcutaneously three times a day with meals, with a sliding scale up to 80 units max per day. Recheck A1C and other labs in June or July. Follow-up appointment scheduled for early August. - Ensure patient understands the new insulin regimen and the importance of monitoring blood glucose levels regularly. Acid Reflux - Possible silent reflux contributing to symptoms. Pt agrees there is improvment in symptoms after starting prior to the surgery. - Continue acid reflux medication for a few more months to aid healing. Consider weaning off after follow-up in August. - Advise patient to avoid foods and behaviors that may exacerbate reflux symptoms. Prescription - novolog FlexPen, 15 units subcutaneously three times a day with meals, with additional sliding scale up to 80 units max per day, 30-day supply Appointments - Follow-up appointment with Dr. Juárez in four weeks - EGD scheduled for July 2024 - Labs to be done in mid to end of June or July 2024 at [facility] - Diabetic checkup appointment in early August 2024 08/18/2024 Other Hypertension: - Blood pressure is well-controlled with current medication regimen, including hydrochlorothiazid e. - Continue current medication regimen. 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 - Consider speech therapy to further improve voice. Diabetes Management: - A1c is 7.4, previously 7.8, with Dexcom issues affecting management. - No changes to current diabetes management. Prescription for Novolog FlexPen with specific sliding scale instructions sent to [facility]. Follow-up in 6 months for diabetes checkup. GERD and Gastritis: - Mild chronic gastritis noted on EGD. - Discuss with ENT specialist whether to continue lansoprazole or switch to famotidine. Await ENT's recommendation. Depression: - Mood is stable on fluoxetine. - Continue current medication. Plan Of Treatment Future Test Test Name Order Date Hemoglobin A1c 06/21/2024 Magnesium, Serum 06/21/2024 Thyroxine (T4) Free, Direct, S TSH 06/21/2024 CBC With Differential/Platelet 5 Lipid Panel 06/21/2024 Comp. Metabolic Panel (14) 06/21/2024 Next Appt Details Provider Name:Dr. Shell oswald, 02/19/2025 01:00:00 PM, [employer] [facility], [place], [address], [phone] Provider Name:Dr. Shell oswald, 03/12/2025 10:30:00 AM, [employer] [facility], [place], [address], [phone] Insurance Providers Payer Name Payer Address Payer Phone Subscriber Number Group Number Insured Name Patient Relationship to Insured Coverage Start Date Coverage End Date NGS Medicare RHC [address] [place] [phone] [id number] Ivy Wood Self - patient is the insured 2 [id number] [address] [place] [address] [id number] Plan G Ivy Wood Self - patient is the insured 2 [facility] Medicare B [address] [place] [address] [id number] Wood Ivy Self - patient is the insured 2 Medical (General) History Medical History History ICD Code Allergic rhinitis, unspecified Chronic sinusitis, unspecified Other allergy status, other than to drug s and biological substances Encounter for screening for COVID-19 Foreign body sensation, throat Body mass index (BMI) 34.0-34.9, adult Encounter for immunization Major depressive disorder, single episod e, in full remission Hyperlipidemia, unspecified E78.5 Obstructive sleep apnea (adult) (pediatr ic) G47.33 Gastro-esophageal reflux disease without esophagitis K21.9 Essential (primary) hypertension I10 Dysphonia R49.0 Polyneuropathy, unspecified G62.9 Anxiety disorder, unspecified F41.9 Type 2 diabetes mellitus with diabetic n europathy, unspecified E11.40 Major depressive disorder, recurrent, in partial remission F33.41 Mild persistent asthma, uncomplicated J4 5.30 Encounter for screening for malignant ne oplasm of colon Z12.11 Body mass index (BMI) 33.0-33.9, adult Z 68.33 Cardiac murmur, unspecified R01.1 Fatty (change of) liver, not elsewhere c lassified K76.0 Benign lipomatous neoplasm, unspecified D17.9 Other specified abnormal findings of blo od chemistry R79.89 Hyperkalemia E87.5 Deficiency of other specified B group vi tamins E53.8 Other bursitis of hip, right hip M70.71 Vitamin D deficiency, unspecified E55.9 Adjustment disorder with depressed mood F43.21 Asymptomatic menopausal state Z78.0 Type 2 diabetes mellitus with hyperglyce armand E11.65 Surgical History Surgery Date(Month/Year) foot surgery Cataract removal ,notes : bilateral Mammogram 02/16 (58022) DXA BONE DENSITY BLAYNE DY ,notes : 2015, 07/06/23 osteopenia, check in 2 years Dilation and curettage _ Carcinoma removal ,notes : skin cancer r emoved from nose 07/2018 Colonoscopy, 2019 EGD mild gastritis 08/19 Diverticulosis, hemorrhoids. repeat 5 yr s 08/19
--- OUTSIDE RECORDS SUMMARY | 2024-11-08 13:29 | XMS_ITS | Clinical Summary ---
Author Organization [facility] Address [address] [place] [address] Care Team Providers Care Speed Belt Sander Name Role Phone Unavailable Primary Care Provider Unavailabl e Source Comments [facility],non-owned Affiliates and Associated Physician Practices is amultiple site organization consisting of ambulatory clinics and hospital sitesin [place], [place], [place] and [place]. This disclosure is being madepursuant to the Care Everywhere program and may not contain all information available regarding this patient. Last updated 18.SendRR Allergies No known active allergies Medications * Be aware that medications may not be up to date on this document. Alwaysverify current medications with the patient. aspirin EC (ECOTRIN) 81 MG tablet daily. Active atorvastatin (LIPITOR) 10 MG tablet Take 2 (two) tablets by mouth once daily 11/27/19 20 Active Blood Glucose Monitoring Suppl (GLUCOCOM BLOOD GLUCOSE MONITOR) NETTE Use as directed to test blood sugar 5x/day 08/19/19 20 Active vitamin D, cholecalciferol, 50 MCG (1999 UT) tablet Take 1 (one) tablet by mouth once daily Active Continuous Blood Gluc Sensor (DEXCOM G6 SENSOR) MISC As directed every 10 days 06/25/19 19 Active vitamin B-12 disintegrating (B-12 DOTS) [address] 1 TABLET UNDER THE TONGUE 4 TIMES A WEEK 02/11/20 19 Active FLUoxetine (PROZAC) 40 MG capsule daily. 10/31/19 19 Active blood glucose (ONETOUCH VERIO) test strip Test blood sugar 5x/day 08/19/19 20 Active insulin glargine (LANTUS) pen Inject 38 (thirty eight) Units subcutaneously once daily 03/17/20 16 Active insulin lispro (HUMALOG;ADMELOG) 100 UNIT/ML pen Inject 1:15 plus 1:20>140 TDD 60 units 08/19/19 20 Active losartan (COZAAR) 25 MG tablet Take 1 (one) tablet by mouth once daily 11/27/19 20 Active metFORMIN (GLUCOPHAGE) 1000 MG tablet TAKE 1 TABLET TWICE A DAY 06/03/19 15 Active traZODone (DESYREL) 50 MG tablet Take 0.5 (one-half) tablet by mouth once daily 06/16/19 20 Active estradiol (Vagifem) 10 MCG vaginal tablet Insert 1 (one) tablet into the vagina at bedtime 05/02/20 24 Active fluticasone hfa 220 (Flovent HFA 220) 220 MCG/ACT inhaler Inhale 1 (one) puff by mouth 2 times daily Active fluticasone-salmet caleb (Advair/Wixela) 100-50 MCG/ACT inhaler Inhale 1 (one) puff by mouth 2 times daily Active lansoprazole (Prevacid) 30 MG capsule Take 1 (one) capsule by mouth daily before breakfast 05/01/20 24 Active montelukast (Singulair) 10 MG tablet Take 1 (one) tablet by mouth once daily Active Active Problems Problem Noted Date Diagnosed Date 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 Social History Tobacco Use Types Packs/Day Years Used Date Smoking Tobacco: Never Smokeless Tobacco: Never Alcohol Use Standard Drinks/Week Comments Not Currently 0 (1 standard drink = 0.6 oz pur e alcohol) Comments No Sex and Gender Information Value Date Recorded Sex Assigned at Not on file Legal Sex Female 8:04 AM CDT Gender Identity Not on file Sexual Orientation Not on file Last Filed Vital Signs Vital Sign Reading Time Taken Comments Blood Pressure 128/72 06/12/2024 10:30 AM ADMINISTRATIVE SUPPORT ASSISTANT Pulse 86 06/12/2024 10:30 AM ADMINISTRATIVE SUPPORT ASSISTANT Temperature 36.8 C (98.3 F) 06/12/2024 9:30 AM ADMINISTRATIVE SUPPORT ASSISTANT Respiratory Rate 14 06/12/2024 9:30 AM ADMINISTRATIVE SUPPORT ASSISTANT Oxygen Saturation 90% 06/12/2024 10:30 AM ADMINISTRATIVE SUPPORT ASSISTANT Inhaled Oxygen Concentration - - Weight 92.1 kg (203 lb) 06/12/2024 7:08 AM ADMINISTRATIVE SUPPORT ASSISTANT Height 166.4 cm (5' 5.5) 06/12/2024 7:08 AM ADMINISTRATIVE SUPPORT ASSISTANT Body Mass Index 33.27 06/12/2024 7:08 AM ADMINISTRATIVE SUPPORT ASSISTANT Plan of Treatment Health Maintenance Due Date Last Done Comments COLOGUARD (AGES 45-75) - COLON CA SCREENING 1956 COLON MONITORING 1956 COLONOSCOPY - COLON CA SCREENING 1956 CT COLONOGRAPHY - COLON CA SCREENING 1956 Colorectal Cancer Screening 1956 FIT - COLON CA SCREENING 1956 FLEX SIG - COLON CA SCREENING 1956 MEDICARE AWV 12 MONTHS 1956 DTAP/TDAP/TD VACCINES (1 - Tdap) 11/26/1975 PNEUMOCOCCAL VACCINE 50+ (1 of 1 - PCV) 2006 ZOSTER VACCINE (1 of 2) 2006 COVID-19 VACCINE (1 - 2023- season) 2024 DEPRESSION SCREENING 05/28/2024 INFLUENZA VACCINE (Season Ended) 2025 05/28/2014 MAMMOGRAM 03/26/2026 03/26/2024, 02/27, 03/26/2023, Additional history exists Respiratory Syncytial Virus (RSV) Vaccine Pt: or over 60 yrs (1 - 1-dose 75+ series) 11/26/2031 HEPATITIS C SCREENING Completed 03/30/2014 BONE DENSITY TESTING Completed 07/06/2023, 06/28/19 22 HEPATITIS B VACCINE Aged Out No longe r eligible based on patient's age to complete this topic HIB VACCINE Aged Out No longer eligi ble based on patient's age to complete this topic HPV VACCINE Aged Out No longer eligi ble based on patient's age to complete this topic MENINGOCOCCAL (Group B) VACCINE SHARED DECISION-MAKING Aged Out No longer eligible based on patient's age to complete this topic MENINGOCOCCAL GROUPS A/C/Y/W VACCINE Aged Out No longer eligible based on patient's age to complete this topic Insurance MEDICARE MEDICARE SUPPLEMENT PAYOR GENERIC
--- NOTE | 2024-11-08 13:32 | ED.EYEPROB ---
HPI - Eye Problem General Chief complaint: Eye Problems Stated complaint: RT Eye Irritation Time Seen by Provider: 11/08/24 13:32 Source: patient Mode of arrival: ambulatory Limitations: no limitations History of Present Illness HPI Narrative: Patient is a 68-year-old female who presents with right eye irritation, redness and drainage since this morning. Denies any vision changes, pain or foreign body sensation. States she has had congestion earlier in the week but that has since resolved. Denies any fever, chills, nausea, vomiting, diarrhea. Related Data Home Medications ?Medication ?Instructions ?Recorded ?Confirmed ?Last Taken ?Type atorvastatin 20 mg tablet 20 mg PO DAILY 12/23/22 12/23/22 Unknown History fluoxetine 40 mg capsule 40 mg PO DAILY 12/23/22 12/23/22 Unknown History fluticasone propionate 115 2 puff inhalation BID 12/23/22 12/23/22 Unknown History mcg-salmeterol 21 mcg/actuation HFA inhaler (Advair HFA) insulin glargine 100 unit/mL (3 See Rx Instructions .Route .COMPLEX 12/23/22 12/23/22 Unknown History mL) subcutaneous pen (Lantus Solostar U-100 Insulin) insulin lispro 100 unit/mL See Rx Instructions .Route .COMPLEX 12/23/22 12/23/22 Unknown History subcutaneous pen (Humalog KwikPen (U-100) Insulin) losartan 25 mg tablet 25 mg PO DAILY 12/23/22 12/23/22 Unknown History metformin 1,000 mg tablet 1,000 mg PO DAILY 12/23/22 12/23/22 Unknown History montelukast 10 mg tablet 10 mg PO HS 12/23/22 12/23/22 Unknown History pantoprazole 40 mg tablet,delayed 40 mg PO DAILY 12/23/22 12/23/22 Unknown History release trazodone 50 mg tablet 50 mg PO HS 12/23/22 12/23/22 Unknown History Allergies Allergy/AdvReac Type Severity Reaction Status Date / Time No Known Allergies Allergy Verified 11/08/24 13:32 Review of Systems Review of Systems: All systems reviewed & are unremarkable except as noted in HPI and below Constitutional: Constitutional: Denies body ache(s), Denies fever(s), Denies headache(s), Denies malaise and Denies weakness Eyes: Eyes: Denies blurry vision, Reports eye discharge, Reports irritation, Denies itchy eyes, Denies loss of vision and Denies eye pain ENT: Denies otalgia, Denies headache(s), Denies nasal discharge, Denies sinus pain and Denies sore throat Cardiovascular: Cardiovascular: Denies chest pain, Denies irregular heart rhythm and Denies dyspnea Respiratory: Respiratory: Denies dyspnea Gastrointestinal: Gastrointestinal: Denies abdominal pain, Denies diarrhea, Denies nausea and Denies vomiting Musculoskeletal: Musculoskeletal: Denies back pain, Denies myalgias and Denies arthralgias Integumentary/Breasts: Skin/Breast: Denies pruritus and Denies rash Neurologic: Denies headache(s), Denies loss of vision and Denies weakness Psychiatric: Psychiatric: Reports no additional psychiatric complaints Allergic/Immunologic: Allergic/Immunologic: Reports itchy eyes PMFSH Comments At time of signature, agree with nursing past medical, surgical, social and family history. There is no relevant family history pertinent to the presenting complaint. Exam Const: General: cooperative, healthy appearing, comfortable, no acute distress and well nourished Nutritional Appearance: well nourished Orientation/consciousness: patient oriented x3 Limitations: no limitations HENMT: Head: normal to inspection, normocephalic and atraumatic Ears: external ears normal Face/Nose/Sinus: Normal external nose present, normal facial exam and face symmetric Face and sinus: normal facial exam and face symmetric Mouth: Yes lip normal Eyes: General: appearance normal, both eyes and all related structures Visual Mello: normal visual mello by confrontation Alignment and Position: alignment normal and position normal Periorbital: periorbital findings normal Eyelids: eyelids normal Conjunctivae: conjunctival abnormality right conjunctival injection diffuse and discharge mucoid Sclera: scleral abnormality right scleral injection diffuse Pupils: Equal, round and reactive pupils present EOM: EOMs intact bilaterally Direct Ophthalmoscopy: no photophobia Other: No hyphema, no foreign body under the lids. Neck: Neck: normal visual inspection, full ROM, no lymphadenopathy and no meningeal signs Chest: Chest palpation & inspection: normal inspection of the chest Resp: Effort & Inspection: normal respiratory effort and able to speak in complete sentences Auscultation: clear to auscultation bilaterally Cardio: Rate: regular rate Rhythm: regular rhythm Heart sounds: S1 normal heart sound present and S2 normal heart sound present GI: Inspection: normal to inspection Skin: General skin exam: normal color and no rashes or lesions noted Neuro: General: patient oriented x3, moves all extremities and no meningeal signs Cranial nerves: Yes Equal, round and reactive pupils present Speech: normal speech Gait exam (Neuro): Normal gait present Extrem: General: normal to inspection, full ROM and no edema Psych: Appearance: grossly normal and well kempt Mental Status: mental status grossly normal Speech and movement: Normal speech and movement present Affect: normal affect Attitude: cooperative Thought process: Normal thought process present Course Course Emergency Course: Patient is aware of diagnosis, understands and agrees to treatment plan. Anticipatory guidance given. Patient agrees to follow-up as directed and is aware of reasons to seek care at the emergency department. Portions of this record may have been created with voice recognition software Level of Care: Express Care Visit Vital Signs Vital signs: Reviewed MDM - Eye Problem MDM Narrative Medical decision making narrative: Pt well hydrated appearing, in no respiratory distress, hemodynamically stable. Recommend supportive care. The patient is stable at time of discharge the clinical impression was discussed and the patient was given the opportunity to ask questions, which were addressed as completely as possible given the information available at present. Anticipatory guidance and return to care precautions were discussed and the importance of primary care follow-up was stressed and encouraged. The patient voiced understanding of the plan, indications to return, and the need for follow-up. Exam findings show no acute concerns or changes Patient is appropriate for outpatient treatment and follow-up. Differential Diagnosis Differential diagnosis: Likely corneal abrasion, conjunctivitis and periorbital cellulitis Medical Records Attestation: I reviewed the patient's medical records. Discharge Plan Discharge Clinical Impression: Bacterial conjunctivitis Patient Disposition: Home Condition: Stable Instructions: Conjunctivitis (ED) Additional Instructions: Eye drops as prescribed. -Do this for 3 to 4 days until all redness and discharge has disappeared. -Cold compresses to the affected eye for comfort -May need warm compresses to remove debris in the morning -When cleaning the eyes used a washcloth/cotton ball in one direction then change washcloths/cotton ball before using it on another eye. -Do not share medicine--do not touch the eye with the medicine -Alternate or take Tylenol or ibuprofen as directed in the bottle for pain -Avoid screen time--television, computer, tablet or phone. -Practice good handwashing and hygiene to prevent spread of infection Follow-up with PCP or counseling aide if condition is not improving in 2-3days. Go to the emergency room if you have pain behind your eye, pressure behind her eye, difficulty seeing, or other severe symptoms Patient Language: Montene[place]in Prescriptions: New ofloxacin 0.3 % drops See Rx Instructions .ROUTE .COMPLEX Qty: 10 0RF Rx Instructions: put 1-2 drps into right eye every 2-4 h x 2 days, then 1-2 drps 4 times/day days 3-7 No Action fluoxetine 40 mg capsule 40 mg PO DAILY atorvastatin 20 mg tablet 20 mg PO DAILY trazodone 50 mg tablet 50 mg PO HS pantoprazole 40 mg tablet,delayed release (DR/EC) 40 mg PO DAILY metformin 1,000 mg tablet 1,000 mg PO DAILY losartan 25 mg tablet 25 mg PO DAILY montelukast 10 mg tablet 10 mg PO HS insulin lispro [Humalog KwikPen Insulin] 100 unit/mL insulin pen See Rx Instructions .ROUTE .COMPLEX Rx Instructions: 100 unit subcutaneously fluticasone propion-salmeterol [Advair HFA] 115-21 mcg/actuation HFA aerosol inhaler 2 puff INHALATION BID insulin glargine [Lantus Solostar U-100 Insulin] 100 unit/mL (3 mL) insulin pen See Rx Instructions .ROUTE .COMPLEX Rx Instructions: 100 unit subcutaneously tobramycin 0.3 % drops 1 drp LEFT EYE Q4H 7 Days Qty: 5 0RF Follow-up/Referrals: Shell Munoz MD [Primary Care Provider] - 3 Days Time of Disposition: 13:53
[2024-11-08 13:34] VITALS: BP 122/68; PULSE 105; RESP 16; TEMP 36.6; O2SAT 97
== END 2024-11-08 14:00 | disposition home or self-care (01) ==
PROVIDERS: Emergency Provider Nurse Practitioner Family; PCP Family Medicine
DX: H10.9 Unspecified conjunctivitis (principal); I10 Essential (primary) hypertension; E78.00 Pure hypercholesterolemia, unspecified; K21.9 Gastro-esophageal reflux disease without esophagitis; M19.90 Unspecified osteoarthritis, unspecified site; E11.9 Type 2 diabetes mellitus without complications; Z79.4 Long term (current) use of insulin; Z79.84 Long term (current) use of oral hypoglycemic drugs; F41.9 Anxiety disorder, unspecified; F32.A Depression, unspecified
CPT/HCPCS: 99213; G0463